=== PATIENT | male | born 1955 | race Caucasian/White ===

== ENCOUNTER 2018-07-04 09:03 | Emergency (ER) | payer OTHER ==
[2018-07-04 09:28] VITALS: TEMP 98.4; BMI 36.2
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
[2018-07-04 10:30] VITALS: BP 157/94; PULSE 94
== END 2018-07-04 10:56 | disposition home or self-care (01) ==
LOC: JERFT 09:03
PROC: 3E1CX8Z Irrigation of Eye using Irrigating Substance (ICD-10-PCS; principal; 2018-07-04)
DX: T65.893A Toxic effect of other specified substances, assault, initial encounter (principal); H57.13 Ocular pain, bilateral; Y92.89 Other specified places as the place of occurrence of the external cause; Y93.89 Activity, other specified; Y99.0 Civilian activity done for income or pay; Y07.9 Unspecified perpetrator of maltreatment and neglect
CPT/HCPCS: 99281-25